=== PATIENT | female | born 1950 | race Two or more races ===

== ENCOUNTER → 2017-07-17 | Day surgery (SDC) | payer MEDICARE, OTHER ==
[2017-07-17 13:32] VITALS: RESP 16; BMI 34.0
--- NOTE | 2017-07-17 15:37 | MM ---
EXAMINATION TYPE: MG stereo VAD BX RT DATE OF EXAM: 07/17/2017 COMPARISON: Outside mammogram July 04, 2017 and June 19, 2017 CLINICAL HISTORY: Abnormal outside mammogram TECHNIQUE: Stereotactic guided core biopsy of right breast with clip placement and follow-up two-view mammogram. FINDINGS: The procedure of stereotactic guided core biopsy was explained to the patient. Benefits, alternatives, and risks were discussed. An informed consent was then obtained. [facility]. Shortness pathway was lateral approach. I performed the localization, then performed the remainder of the procedure. Overlying skin is cleansed with Betadine. Lidocaine is used as anesthetic into the skin and deeper tissue. A vacuum assisted biopsy gun was used to obtain multiple core samples. The patient tolerated the procedure well without any immediate complication. The patient was kept in the radiology department for short stay after the procedure and then discharged home in stable condition. Targeted calcifications are identified in specimen mammogram. Post biopsy mammogram shows the clip to appear in satisfactory position relative to the targeted area of concern on the preprocedure images. No suspicious residual calcifications are identified. IMPRESSION: SUCCESSFUL, UNCOMPLICATED STEREOTACTIC GUIDED CORE BIOPSY OF AREA OF CONCERN IN THE RIGHT BREAST, FULL PATHOLOGY RESULTS TO FOLLOW. Intermediate index of suspicion noted at time of procedure. Pathology Results: Benign BREAST, RIGHT, CORE BIOPSY: PENDING CONSULTATION, SEE ADDENDUM/FINAL DIAGNOSIS. ADDENDUM REPORT BREAST, RIGHT, STEREOTACTIC CORE BIOPSY ([id number]; 07/17/2017): FLAT EPITHELIAL ATYPIA (FEA) WITH ASSOCIATED MICROCALCIFICATIONS. Recommendation: Surgical consultation. Follow up mammogram of the right breast in 6 months. IVONNE
[2017-07-17 15:59] VITALS: BP 142/78; PULSE 67; TEMP 97.8
== END ==
LOC: RADMAMWWP 13:15
PROVIDERS: ATTEND Surgery
DX: R92.0 Mammographic microcalcification found on diagnostic imaging of breast (principal); Z88.6 Allergy status to analgesic agent; Z88.8 Allergy status to other drugs, medicaments and biological substances
CPT/HCPCS: 88305; 19081; A4648; J2001

== ENCOUNTER → 2018-08-06 | Outpatient (CLI) | payer MEDICARE, OTHER ==
--- NOTE | 2018-08-06 13:00 | MM ---
Reason for exam: additional evaluation requested from prior study. Last mammogram was performed 1 year and 1 month ago. History: Patient is postmenopausal. Benign MG pre op needle loc RT of the right breast, August 06, 2017. Benign MG stereo VAD BX RT of the right breast, July 17, 2017. Took estrogen for 3 years beginning at age 47. Took progesterone for 3 years beginning at age 47. Physical Findings: Nurse did not find any significant physical abnormalities on exam. MG 3D Diag Mammo W/Cad NICHELLE Bilateral CC and MLO view(s) were taken. LM, CC with magnification, MLO with magnification, and LM with magnification view(s) were taken of the left breast. Prior study comparison: July 04, 2017, mammogram. June 19, 2017, mammogram. The breast tissue is heterogeneously dense. This may lower the sensitivity of mammography. There is a 6 mm group left upper outer quadrant calcifications at middle depth appear rounded and punctate and loosely grouped. 6 month follow up is recommended. Post therapy change on right. These results were verbally communicated with the patient and result sheet given to the patient on 08/06/18. ASSESSMENT: Probably benign, BI-RAD 3 RECOMMENDATION: Follow-up diagnostic mammogram of the left breast in 6 months. (with magnification views)
== END | disposition home or self-care (01) ==
LOC: RADMAMWWP 09:58
PROVIDERS: ATTEND Family Medicine
DX: R92.8 Other abnormal and inconclusive findings on diagnostic imaging of breast (principal)
CPT/HCPCS: 77066; G0279; 77062

== ENCOUNTER → 2018-09-24 | Outpatient (CLI) | payer MEDICARE, OTHER ==
--- NOTE | 2018-09-24 20:31 | MR ---
EXAMINATION TYPE: MR lumbar spine wo con DATE OF EXAM: 09/24/2018 COMPARISON: None HISTORY: 68-year-old female with low back pain, primarily into right leg, and numbness TECHNIQUE: Multiplanar, multisequence images of the lumbar spine were acquired. FINDINGS: Vertebral body heights are preserved and alignment is maintained. Fatty matrix hemangioma within the L3 vertebral body. No suspicious bone marrow placement. There is hypertrophic facet arthropathy throughout the mid to lower lumbar spine. Prominent epidural fat lower lumbar spine and upper sacral canal causing trefoil configuration of the thecal sac at the S1 level. Mild multilevel degenerative disc disease with variable disc desiccation and disc bulging. Anterior e ndplate spondylosis is present throughout. Conus medullaris is normal. At T12-L1, no significant canal or foraminal stenosis. At L1-L2, mild bulging disc without significant canal or foraminal stenosis. At L2-L3, no canal or foraminal stenosis. At L3-L4, facet arthropathy without significant canal or foraminal stenosis. L4-L5, there is hypertrophic facet arthropathy with a prominent dorsal and lateral epidural fat and b ulging disc. Changes within mild right neuroforaminal stenosis and mild overall narrowing of the thec al sac without canal compromise. At L5-S1, there is moderate circumferential attenuation of the thecal sac secondary to epidural lipom atosis and bulging disc. There is hypertrophic facet arthropathy as well but no significant neurofora rosa stenosis seen. No prevertebral paravertebral soft tissue abnormality. IMPRESSION: 1. Hypertrophic facet arthropathy lower lumbar spine and mild multilevel degenerative disc disease. 2. Additional epidural lipomatosis lower lumbar spine and upper sacrum resulting in trefoil configura tion of the thecal sac at the S1 level and moderate circumferential attenuation of the thecal sac at L5-S1. 3. Changes result in mild right neuroforaminal stenosis at L4-L5.
== END | disposition home or self-care (01) ==
LOC: RADMRIMAIN 13:33
PROVIDERS: ATTEND Orthopaedic Surgery
DX: M99.73 Connective tissue and disc stenosis of intervertebral foramina of lumbar region (principal); M51.36 Other intervertebral disc degeneration, lumbar region; M46.96 Unspecified inflammatory spondylopathy, lumbar region; E88.2 Lipomatosis, not elsewhere classified
CPT/HCPCS: 72148

== ENCOUNTER → 2019-02-07 | Outpatient (CLI) | payer MEDICARE, OTHER ==
--- NOTE | 2019-02-07 12:26 | MM ---
Reason for exam: follow-up at short interval from prior study. Last mammogram was performed 6 months ago. History: Patient is postmenopausal. Benign MG pre op needle loc RT of the right breast, August 06, 2017. Benign MG stereo VAD BX RT of the right breast, July 17, 2017. Took estrogen for 3 years beginning at age 47. Took progesterone for 3 years beginning at age 47. Physical Findings: Nurse did not find any significant physical abnormalities on exam. MG 3D Diag Mammo W/Cad LT CC and MLO view(s) were taken of the left breast. Prior study comparison: August 06, 2018, bilateral MG 3d diag mammo w/cad NICHELLE. July 04, 2017, mammogram. Slight increase in calcifications upper outer left breast. Biopsy recommended. These results were verbally communicated with the patient and result sheet given to the patient on 02/07/19. ASSESSMENT: Suspicious, BI-RAD 4 RECOMMENDATION: Stereotactic core biopsy of the left breast. Called with mammographic findings and has scheduled an appointment for the patient for 02/20/19 at 12:[address] Talbot. Biopsy scheduled for 02/27/19 at 8:00. PRELIMINARY REPORT CALLED AND FAXED TO DR. TALBOT ON 02/07/19.
== END ==
LOC: RADMAMWWP 11:03
PROVIDERS: ATTEND Family Medicine
DX: R92.8 Other abnormal and inconclusive findings on diagnostic imaging of breast (principal)
CPT/HCPCS: 77065; G0279; 77061

== ENCOUNTER → 2019-02-20 | Outpatient (CLI) | payer MEDICARE, OTHER ==
[2019-02-20 12:19] VITALS: BP 150/86; PULSE 65; RESP 18; TEMP 97.6; BMI 37.7
--- NOTE | 2019-02-20 12:57 | P.GSHP ---
History of Present Illness H&P Date: 02/20/19 Chief Complaint: abnormal mammogram The patient is a 68 year old white female status post core biopsy of the right breast which resulted in an open biopsy about 11/2 years ago. The pathology was benign. She states she now has pain at the site where it was removed. The pain is intermittent and shooting in nature. She had a bilateral mammogram in July 2018 after which it was recommended that a repeat left breast mammogram be performed in 6 months. The left breast mammogram was performed on 5318. This revealed an increasing calcifications in the upper outer quadrant of the left breast and stereotactic core biopsy was recommended. She does not feel anything of concern in her breast. Family History: 1. sister: lymphoma 2. sister: lymphoma also 3. maternal grandmother: colon cancer Hormonal History: menarche: 15 : , first at 30. breast fed: yes menopause: 54 BCP: 20 years hormones: 1 year Past Surgical History: 1. breast biopsy right 2. enterocoele 3. gallbaldder Past Medical History: 1. back pain 2. tendonitis 3. GERD 4. obesity 5. syncope 6. arthritis 7. diabetic 8. skin lesion buttock Social History: smoke: none alcohol: weekly/beer drugs: Marijuana, daily for arthritis - Constitutional Constitutional: Reports sweats, Denies chills, Denies fever - EENT Eyes: denies blurred vision, denies pain Ears: bilateral: decreased hearing, deny: tinnitus Ears, nose, mouth and throat: Denies headache, Denies sore throat - Breasts Breasts: bilateral: as per HPI - Cardiovascular Cardiovascular: Reports high blood pressure, Denies chest pain, Denies shortness of breath - Respiratory Respiratory: Denies cough, Denies 7 - Gastrointestinal Gastrointestinal: Denies abdominal pain, Denies diarrhea, Denies nausea, Denies vomiting - Genitourinary (Female) Genitourinary: Denies dysuria, Denies hematuria - Menstruation Menstruation: Reports postmenopausal - Musculoskeletal Comment: arthritis, DJD - Integumentary Integumentary: Reports rash, Denies pruritus - Neurological Comment: syncope - Psychiatric Psychiatric: Reports anxiety, Reports depression - Endocrine Endocrine: Reports fatigue, Denies weight change - Hematologic/Lymphatic Comment: none - Allergic/Immunologic Allergic/Immunologic: Reports seasonal allergies Past Medical History Past Medical History: Diabetes Mellitus, GERD/Reflux, Hypertension, Osteoarthritis (OA), Skin Disorder Additional Past Medical History / Comment(s): HX NICHELLE. SHOULDER PAIN. URINE FREQUENCY-STRESS INCONT. HX DUODENAL ULCER- PT STATES R/T CELEBREX USE. NAUSEA History of Any Multi-Drug Resistant Organisms: None Reported Past Surgical History: Cholecystectomy, Tonsillectomy, Tubal Ligation Additional Past Surgical History / Comment(s): CATARACT NICHELLE EYES WITH IMPLANTS, LASIK NICHELLE.EYE SURGERY-2009. CYSTOCELE & RECTOCELE 2006 Past Anesthesia/Blood Transfusion Reactions: Previous Problems w/ Anesthesia Additional Past Anesthesia/Blood Transfusion Reaction / Comment(s): Pt states experienced extreme tiredness after anesthesia for several days after TL Past Psychological History: Anxiety Smoking Status: Former smoker Past Alcohol Use History: Occasional Additional Past Alcohol Use History / Comment(s): smoked 25 years 1ppd quit 1989 Past Drug Use History: Marijuana Additional Drug Use History / Comment(s): USES MARIJUANA 2-3 X A WEEK FOR HER NICHELLE.SHOULDER PAIN - Past Family History Mother Family Medical History: Cancer Additional Family Medical History / Comment(s): BONE CA Medications and Allergies Home Medications Medication Instructions Recorded Confirmed Type Escitalopram [Lexapro] 10 mg PO HS 07/15/14 02/20/19 History Lisinopril [Prinivil] 20 mg PO HS 07/15/14 02/20/19 History Omeprazole [PriLOSEC] 10 mg PO DAILY 07/13/17 02/20/19 History metFORMIN HCL ER [Glucophage Xr] 1,000 mg PO AC-LUNCH 07/13/17 02/20/19 History Simvastatin 10 mg PO DAILY 02/20/19 02/20/19 History Allergies Allergy/AdvReac Type Severity Reaction Status Date / Time celecoxib [From Celebrex] AdvReac Severe GI BLEED Verified 02/20/19 12:23 NSAIDS (Non-Steroidal AdvReac Abdominal Verified 02/20/19 12:23 Anti-Inflamma Pain Surgical - Exam Vital Signs Temp Pulse Resp BP Pulse Ox 97.6 F 65 18 150/86 97 02/20/19 12:07 02/20/19 12:07 02/20/19 12:07 02/20/19 12:07 02/20/19 12:07 BMI 37.7 - General obese - Eyes normal ocular movement - ENT normal pinna, no hearing loss - Neck no masses, trachea midline - Respiratory normal expansion, normal respiratory effort, clear to auscultation - Cardiovascular Rhythm: regular Heart Sounds: normal: S1, S2 - Abdomen Abdomen: soft, non tender, no guarding, no rigid, no rebound - Integumentary normal turgor - Neurologic no disoriented, no combative - Musculoskeletal normal gait, normal posture - Psychiatric oriented to time, oriented to person, oriented to place, speech is normal, memory intact breast exam: Right breast: Multi-positional exam no dominant masses or nodules of concern, well-healed scar from prior biopsy Right axilla: No adenopathy of concern Left breast: There is a skin nevus protuberant the medial aspect of the breast, this is non-worrisome, multiple positional exam no dominant masses or nodules of concern Left axilla: No adenopathy of concern Results Mammogram reports from July as well as February 2019 reviewed Assessment and Plan Assessment: Impression: 1. abnormal mammogram of the left breast 2. fibrocystic changes 3. family history of cancer, 4. skin lesion breast and buttock 5. back pain 6. GERD 7. syncope 8. obesity 9. HTN Plan: 1. stero biopsy of the left breast 2. medical managment of medical problems 3. excision of mole left breast Risk and benefits of procedure discussed with the patient, the patient to have a stero-biopsy in the near future. CC: Dr. Mcpherson
== END | disposition home or self-care (01) ==
LOC: WWCWWP 11:54
PROVIDERS: ATTEND Surgery
DX: Z53.9 Procedure and treatment not carried out, unspecified reason (principal)

== ENCOUNTER → 2019-03-27 | Day surgery (SDC) | payer MEDICARE, OTHER ==
[2019-03-27 07:43] VITALS: PULSE 62; RESP 16; BMI 37.7
[2019-03-27 08:54] VITALS: BP 140/88; TEMP 97.8
--- NOTE | 2019-03-27 09:34 | P.OP ---
Date of Procedure: 03/27/19 Preoperative Diagnosis: Abnormal mammogram left breast, microcalcifications Postoperative Diagnosis: same Procedure(s) Performed: Left breast stereotactic core biopsy Anesthesia: local Surgeon: Shell Talbot Estimated Blood Loss (ml): 0 Pathology: other (breast tissue) Condition: stable Disposition: same day Indications for Procedure: Microcalcifications of concern left breast Operative Findings: Calcifications noted and biopsy specimen Description of Procedure: Liza is a 68-year-old white female who presents for left breast stereotactic core biopsy of an area of increasing calcifications. The risks and benefits of the procedure were discussed with the patient and she wished to proceed with the procedure. The patient was placed on the lower right stereotactic table and a last puller film was obtained. The area of concern was identified. Stereo pair was obtained and the lesion was targeted. The breast was prepped using Betadine. A 9-gauge vacuum-assisted core rotating biopsy needle was inserted to the correct location. Prefire films were obtained, the needle was fired and posterior films were obtained. Prior to insertion of the needle 10 mL of 1% lidocaine were used to anesthetize the area of concern, as an additional 10 mL of lidocaine auto- injected during the procedure. Multiple core biopsies were obtained. Radiograph the specimen revealed the area of concern abdomen sampled as there were microcalcifications in the specimen. Following this a securing marked top Marker was placed. The patient tolerated the procedure in stable condition. The specimen was sent to pathology. Patient to follow-up with Dr. Mederos next week.
--- NOTE | 2019-03-27 17:46 | MM ---
EXAMINATION TYPE: MG stereo VAD BX LT DATE OF EXAM: 03/27/2019 COMPARISON: 02/07/2019 and 08/06/2018 CLINICAL HISTORY: 68-year-old female referred for stereotactic core needle biopsy of the left breast TECHNIQUE: Stereotactic guided core biopsy of the left breast. FINDINGS: The procedure of stereotactic guided core biopsy was explained to the patient. Benefits, alternatives, and risks were discussed. An informed consent was then obtained. The shortness pathway for biopsy was chosen for the upper outer quadrant microcalcifications. Shortness pathway was a superior approach. I performed the localization, then surgeon, Dr. Gatito Fairbanks performed the remainder of the procedure. A vacuum assisted biopsy gun was used to obtain multiple core samples. The patient tolerated the procedure well without any immediate complication. The patient was kept in the radiology department for short stay after the procedure and then discharged home in stable condition. Targeted calcifications are identified in specimen mammogram. Post biopsy mammogram shows the clip to appear in satisfactory position relative to the targeted area of microcalcifications in the upper outer quadrant. IMPRESSION: SUCCESSFUL, UNCOMPLICATED STEREOTACTIC GUIDED CORE BIOPSY OF LEFT UPPER OUTER QUADRANT MICROCALCIFICATIONS; FULL PATHOLOGY RESULTS TO FOLLOW. Pathology Results: Benign LEFT BREAST, STEREOTACTIC CORE BIOPSY: Fibrocystic changes including fibrosis, cysts, columnar cell change, apocrine metaplasia and calcifications. Recommendation Follow up mammogram of the left breast in 6 months. IVONNE
== END ==
LOC: RADMAMWWP 02-27 07:08
PROVIDERS: ATTEND Surgery
DX: N60.12 Diffuse cystic mastopathy of left breast (principal); N60.82 Other benign mammary dysplasias of left breast; R92.1 Mammographic calcification found on diagnostic imaging of breast; Z88.6 Allergy status to analgesic agent; Z88.8 Allergy status to other drugs, medicaments and biological substances
CPT/HCPCS: 88305; 19081; A4648; J2001

== ENCOUNTER → 2019-04-03 | Day surgery (SDC) | payer MEDICARE, OTHER ==
[2019-04-03 15:07] VITALS: BP 143/96; PULSE 72; RESP 16; TEMP 98.1; BMI 38.0
--- NOTE | 2019-04-03 15:37 | P.PN ---
Subjective Progress Note Date: 04/03/19 Principal diagnosis: sterobiopsy of the left breast The patient is status post left breast are detected core biopsy. Pathology is benign. The patient states she has not had a right breast mammogram for approximately 1-1/2 years. We will obtain a right breast mammogram at this time. He has no complaints related to the left breast stereotactic core biopsy. Physical exam: Lungs: Clear Heart: Regular rate and rhythm Left breast biopsy site clean and dry no evidence of infection Impression: 1. Fibrocystic changes left breast 2. Patient to a right breast mammogram CC:Dr. Mcpherson Objective - Vital Signs Vital signs: Vital Signs Temp 98.1 F 04/03/19 15:00 Pulse 72 04/03/19 15:00 Resp 16 04/03/19 15:00 BP 143/96 04/03/19 15:00 Pulse Ox 94 L 04/03/19 15:00 Intake & Output 04/02/19 04/03/19 04/03/19 18:59 06:59 18:59 Weight 97.522 kg
== END ==
LOC: EDSTATUS 03-28 14:20 → WWCWWP 14:43
PROVIDERS: ATTEND Surgery
DX: Z53.9 Procedure and treatment not carried out, unspecified reason (principal)

== ENCOUNTER → 2019-09-29 | Outpatient (CLI) | payer MEDICARE, OTHER ==
--- NOTE | 2019-09-29 10:51 | MM ---
Reason for exam: additional evaluation requested from prior study. Last mammogram was performed 8 months ago. History: Patient is postmenopausal. Benign MG stereo VAD BX LT of the left breast, March 27, 2019. Benign MG pre op needle loc RT of the right breast, August 06, 2017. Benign MG stereo VAD BX RT of the right breast, July 17, 2017. Took estrogen for 3 years beginning at age 47. Took progesterone for 3 years beginning at age 47. Physical Findings: Nurse did not find any significant physical abnormalities on exam. MG 3D Diag Mammo W/Cad NICHELLE Bilateral CC and MLO view(s) were taken. XCCL view(s) were taken of the right breast. Prior study comparison: February 07, 2019, left breast MG 3d diag mammo w/cad LT. August 06, 2018, bilateral MG 3d diag mammo w/cad NICHELLE. The breast tissue is heterogeneously dense. This may lower the sensitivity of mammography. Post excisional changes right breast. Upper outer quadrant microclip on the left from recent biopsy. No significant new findings when compared with previous films. These results were verbally communicated with the patient and result sheet given to the patient on 09/29/19. ASSESSMENT: Benign, BI-RAD 2 RECOMMENDATION: Routine screening mammogram of both breasts in 1 year.
== END | disposition home or self-care (01) ==
LOC: RADMAMWWP 09:14
PROVIDERS: ATTEND Surgery
DX: R92.8 Other abnormal and inconclusive findings on diagnostic imaging of breast (principal)
CPT/HCPCS: 77066; G0279; 77062

== ENCOUNTER → 2019-10-09 | Outpatient (CLI) | payer MEDICARE, OTHER ==
[2019-10-09 08:53] VITALS: BP 137/77; PULSE 69; RESP 18; TEMP 97.8
--- NOTE | 2019-10-09 09:44 | P.PN ---
Sabi De Jesus is a 69-year-old white female status post bilateral breast stereotactic biopsies. The right breast was approximately a year and half ago. In the left breast stereotactic biopsy was in March 2019. Pathology on both was benign. The patient at this time has no complaints related to her breasts. No complaints of pain in her breasts. No complaints of breast lumps or masses. No complaints of any nipple discharge or skin changes. Patient had bilateral mammogram in 122 [id number] and this was benign BIRADS 2 routine screening of both breasts in 1 year was recommended. Family History: 1. mother: lymphoma/leukemia 2. two sisters: lymphoma 3. maternal grandmother: colon cancer 4. nephew 1 year old : neuroblastoma Hormonal History: menarche: 15 : , first at 30. breast fed: yes menopause: 54 BCP: 20 years hormones: 1 year Past Surgical History: 1. breast biopsy bilateral stero biopsy 2. enterocoele 3. gallbaldder Past Medical History: 1. back pain 2. tendonitis 3. GERD 4. obesity 5. syncope 6. arthritis 7. diabetic 8. skin lesion buttock/rash Social History: smoke: none alcohol: weekly/beer drugs: Marijuana, daily for arthritis - Constitutional Constitutional: Reports sweats, Denies chills, Denies fever - EENT Eyes: denies blurred vision, denies pain, dry eyes Ears: bilateral: decreased hearing, deny: tinnitus Ears, nose, mouth and throat: Denies headache, Denies sore throat - Breasts Breasts: bilateral: as per HPI - Cardiovascular Cardiovascular: Reports high blood pressure, Denies chest pain, Denies shortness of breath - Respiratory Respiratory: cough related to smoking - Gastrointestinal Gastrointestinal: Denies abdominal pain, Denies diarrhea, Denies nausea, Denies vomiting - Genitourinary (Female) Genitourinary: Denies dysuria, Denies hematuria - Menstruation Menstruation: Reports postmenopausal - Musculoskeletal Comment: arthritis, DJD - Integumentary Integumentary: Reports rash, Denies pruritus - Neurological Comment: syncope - Psychiatric Psychiatric: Reports anxiety, Reports depression - Endocrine Endocrine: Reports fatigue, Denies weight change - Hematologic/Lymphatic Comment: none - Allergic/Immunologic Allergic/Immunologic: Reports seasonal allergies Past Medical History Past Medical History: Diabetes Mellitus, GERD/Reflux, Hypertension, Osteoarthritis (OA), Skin Disorder Additional Past Medical History / Comment(s): HX NICHELLE. SHOULDER PAIN. URINE FREQUENCY-STRESS INCONT. HX DUODENAL ULCER- PT STATES R/T CELEBREX USE. NAUSEA History of Any Multi-Drug Resistant Organisms: None Reported Past Surgical History: Cholecystectomy, Tonsillectomy, Tubal Ligation Additional Past Surgical History / Comment(s): CATARACT NICHELLE EYES WITH IMPLANTS, LASIK NICHELLE.EYE SURGERY-2009. CYSTOCELE & RECTOCELE 2005 Past Anesthesia/Blood Transfusion Reactions: Previous Problems w/ Anesthesia Additional Past Anesthesia/Blood Transfusion Reaction / Comment(s): Pt states experienced extreme tiredness after anesthesia for several days after TL Past Psychological History: Anxiety Smoking Status: Former smoker Past Alcohol Use History: Occasional Additional Past Alcohol Use History / Comment(s): smoked 25 years 1ppd quit 1989 Past Drug Use History: Marijuana Additional Drug Use History / Comment(s): USES MARIJUANA 2-3 X A WEEK FOR HER NICHELLE.SHOULDER PAIN - Past Family History Mother Family Medical History: Cancer Additional Family Medical History / Comment(s): BONE CA Medications and Allergies Home Medications Medication Instructions Recorded Confirmed Type Escitalopram [Lexapro] 10 mg PO HS 07/15/14 02/20/19 History Lisinopril [Prinivil] 20 mg PO HS 07/15/14 02/20/19 History Omeprazole [PriLOSEC] 10 mg PO DAILY 07/13/17 02/20/19 History metFORMIN HCL ER [Glucophage Xr] 1,000 mg PO AC-LUNCH 07/13/17 02/20/19 History Simvastatin lyrica 10 mg PO DAILY 02/20/19 02/20/19 History Allergies Allergy/AdvReac Type Severity Reaction Status Date / Time celecoxib [From Celebrex] AdvReac Severe GI BLEED Verified 02/20/19 12:23 NSAIDS (Non-Steroidal AdvReac Abdominal Verified 02/20/19 12:23 Anti-Inflamma Pain Objective - Vital Signs Vital signs: Vital Signs Temp 97.8 F 10/09/19 08:49 Pulse 69 10/09/19 08:49 Resp 18 10/09/19 08:49 BP 137/77 10/09/19 08:49 Pulse Ox 97 10/09/19 08:49 Intake & Output 10/08/19 10/09/19 10/09/19 18:59 06:59 18:59 Weight 98.43 kg - Exam BMI 38.4 - Constitutional General appearance: Present: obese - EENT Eyes: Present: EOMI ENT: Present: hearing grossly normal - Neck Details: no adenopathy of concern Neck: Present: normal ROM - Respiratory Respiratory: bilateral: CTA - Cardiovascular Rhythm: regular Heart sounds: normal: S1, S2 - Gastrointestinal Gastrointestinal Comment(s): spleen and liver not enlarged General gastrointestinal: Present: normal bowel sounds, soft - Integumentary Integumentary Comment(s): several scaling lesions on the bilateral lower arms related to prior trauma, dog scratches skin nevis left breast patient says no change - Musculoskeletal Musculoskeletal: Present: gait normal - Psychiatric Psychiatric: Present: A&O x's 3, appropriate affect, intact judgment & insight - Additional findings Additional findings: breast exam: right breast: Well-healed scar right breast, multiple positional exam no dominant masses or nodules of concern Right axilla: No adenopathy of concern Left breast: Multi-positional exam fibrocystic changes, no dominant masses or nodules of concern, scan reveals 2 small nevus which patient states has not changed Left axilla: No adenopathy of concern Assessment and Plan Assessment: Impression: 1. fibrocystic breast disease 2. status post bilateral stero-biopsy 3. bilateral mammogram on 09-29-19 benign BERAD 2 4. skin changes on left breast 5. family history of cancer 6. back pain 7. GERD 8. obeity 9. HTN 10. syncope Plan: 1. bilateral mammogram 1 year 2. patient does not want excision of mole of left breast at this time, this has been stable 3. medical managment of medical conditions 4. follow up in one year CC: DR. Luis encounter 20 minutes, > 50% discussion and counselling
== END ==
LOC: WWCWWP 08:37
PROVIDERS: ATTEND Surgery
DX: Z53.9 Procedure and treatment not carried out, unspecified reason (principal)

== ENCOUNTER → 2020-10-04 | Outpatient (CLI) | payer MEDICARE, OTHER ==
--- NOTE | 2020-10-04 13:21 | MM ---
Reason for exam: screening (asymptomatic). Last mammogram was performed 1 year ago. History: Patient is postmenopausal. Benign MG stereo VAD BX LT of the left breast, March 27, 2019. Benign MG pre op needle loc RT of the right breast, August 06, 2017. Benign MG stereo VAD BX RT of the right breast, July 17, 2017. Took estrogen for 3 years beginning at age 47. Took progesterone for 3 years beginning at age 47. Physical Findings: A clinical breast exam by your physician is recommended on an annual basis and results should be correlated with mammographic findings. MG 3D Screening Mammo W/Cad Bilateral CC and MLO view(s) were taken. Prior study comparison: September 29, 2019, bilateral MG 3d diag mammo w/cad NICHELLE. February 07, 2019, left breast MG 3d diag mammo w/cad LT. The breast tissue is heterogeneously dense. This may lower the sensitivity of mammography. Finding: There are clips, architectural distortion in the right breast consistent with known excisional changes. Previous mammotome biopsy in the left breast. There is no discrete abnormality. ASSESSMENT: Benign, BI-RAD 2 RECOMMENDATION: Routine screening mammogram of both breasts in 1 year.
== END | disposition home or self-care (01) ==
LOC: RADMAMWWP 07:53
PROVIDERS: ATTEND Surgery
DX: Z12.31 Encounter for screening mammogram for malignant neoplasm of breast (principal)
CPT/HCPCS: 77063; 77067

== ENCOUNTER → 2020-10-14 | Outpatient (CLI) | payer MEDICARE ==
[2020-10-14 09:54] VITALS: BP 155/84; PULSE 75; RESP 18; TEMP 97.7
--- NOTE | 2020-10-14 10:20 | P.PN ---
Subjective Progress Note Date: 10/14/20 Principal diagnosis: fibrocystic breast changes Liza is a 70-year-old white female status post bilateral breast stereotactic biopsies. The right breast was approximately 2 and half years ago. In the left breast stereotactic biopsy was in March 2019. Pathology on both was benign. The patient at this time has no complaints related to her breasts. No complaints of pain in her breasts. No complaints of breast lumps or masses. No complaints of any nipple discharge or skin changes. Patient had bilateral mammogram in and this was benign BIRADS 2 routine screening of both breasts in 1 year was recommended. Family History: 1. mother: lymphoma/leukemia 2. two sisters: lymphoma 3. maternal grandmother: colon cancer 4. nephew 1 year old : neuroblastoma Hormonal History: menarche: 15 : , first at 30. breast fed: yes menopause: 54 BCP: 20 years hormones: 1 year Past Surgical History: 1. breast biopsy bilateral stero biopsy 2. enterocoele 3. gallbaldder Past Medical History: 1. back pain; spinal stenosis 2. tendonitis 3. GERD 4. obesity 5. syncope 6. arthritis 7. diabetic 8. skin lesion buttock/rash Social History: smoke: none alcohol: weekly/beer drugs: Marijuana, daily for arthritis - Constitutional Constitutional: Reports sweats, Denies chills, Denies fever - EENT Eyes: denies blurred vision, denies pain, dry eyes Ears: bilateral: decreased hearing, deny: tinnitus Ears, nose, mouth and throat: Denies headache, Denies sore throat - Breasts Breasts: bilateral: as per HPI - Cardiovascular Cardiovascular: Reports high blood pressure, Denies chest pain, Denies shortness of breath - Respiratory Respiratory: cough related to smoking - Gastrointestinal Gastrointestinal: Denies abdominal pain, Denies diarrhea, Denies nausea, Denies vomiting - Genitourinary (Female) Genitourinary: Denies dysuria, Denies hematuria - Menstruation Menstruation: Reports postmenopausal - Musculoskeletal Comment: arthritis, DJD - Integumentary Integumentary: Reports rash, Denies pruritus - Neurological Comment: syncope - Psychiatric Psychiatric: Reports anxiety, Reports depression - Endocrine Endocrine: Reports fatigue, Denies weight change - Hematologic/Lymphatic Comment: none - Allergic/Immunologic Allergic/Immunologic: Reports seasonal allergies Objective - Vital Signs Vital signs: Vital Signs Temp 97.7 F 10/14/20 09:51 Pulse 75 10/14/20 09:51 Resp 18 10/14/20 09:51 BP 155/84 10/14/20 09:51 Pulse Ox 96 10/14/20 09:51 Intake & Output 10/13/20 10/14/20 10/14/20 18:59 06:59 18:59 Weight 98.883 kg - Exam BMI 37.7 - Constitutional General appearance: Present: obese - EENT Eyes: Present: EOMI ENT: Present: hearing grossly normal - Neck Neck: Present: normal ROM - Respiratory Respiratory: bilateral: CTA - Cardiovascular Rhythm: regular Heart sounds: normal: S1, S2 - Gastrointestinal General gastrointestinal: Present: normal bowel sounds, soft - Integumentary Integumentary: Present: normal turgor - Musculoskeletal Musculoskeletal: Present: gait normal - Psychiatric Psychiatric: Present: A&O x's 3, appropriate affect, intact judgment & insight - Additional findings Additional findings: breast exam: BRA: 40C inspection: bilateral grade 3 ptosis palpation: right breast: Positional exam fibrocystic changes, no dominant masses or nodules of concern Right axilla: No adenopathy of concern Left breast: Multi-positional exam fibrocystic changes, increased nodularity. Areolar area at 9 to 11:00 Left axilla: No adenopathy of concern Assessment and Plan Assessment: Impression: 1. back pain; spinal stenosis 2. tendonitis 3. GERD 4. obesity 5. syncope 6. arthritis 7. diabetic 8. skin lesion buttock/rash 9. Fibrocystic breast changes bilateral, increased nodularity 9 to 11 o'clock position left breast 10. Bilateral mammogram October 04 BIRADS 2 Plan: 1. FNA of increased nodularity 9 to 11 o'clock position left breast 2. Follow up if the FNA for results The risk and benefits of procedure discussed with the patient she understands and wishes to proceed CC: DR. Mcpherson encounter 20 minutes, > 50% of time in planning and counselling
--- NOTE | 2020-10-14 10:24 | P.PCN ---
Date of Procedure: 10/14/20 Preoperative Diagnosis: Nodularity left breast between 9 and 11:00 periareolar region Postoperative Diagnosis: same Procedure(s) Performed: FNA left breast Surgeon: Shell Talbot Pathology: other (FNA of left breast) Condition: stable Disposition: same day Indications for Procedure: nodularity left breast Description of Procedure: The area of concern in the left breast was prepped using alcohol. A 22 gauge needle on a 12 mL syringe was inserted into the area and a negative pressure tissue was obtained. The tissue was prepped and sent for FNA. Patient tolerated the procedure in stable condition. Specimen was sent for pathology.
== END | disposition home or self-care (01) ==
LOC: WWCWWP 09:33
PROVIDERS: ATTEND Surgery
DX: N64.9 Disorder of breast, unspecified (principal)
CPT/HCPCS: 88173; 88305

== ENCOUNTER → 2020-10-21 | Outpatient (CLI) | payer MEDICARE ==
[2020-10-21 09:37] VITALS: BP 137/90; PULSE 70; RESP 18; TEMP 98.1
--- NOTE | 2020-10-21 09:57 | P.PN ---
Progress Note - Text Progress Note Date: 10/21/20 There is a 70-year-old white female who is status post FNA of an area of the left breast at the 9 to 11 o'clock position for some increased nodularity. Recent radiographs did not show anything of concern. FNA was unsatisfactory revealing only blood and some amorphous debris. The patient was given the option of resection in the operating room versus an ultrasound and close surveillance of the area. At this time she would prefer the ultrasound and close surveillance. Physical exam: Examination of the left breast reveals some ecchymosis at the site of the FNA. No evidence of any infection. Impression: 1. Back pain, spinal stenosis 2. Tendinitis 3. GERD 4. Obesity 5. Syncope. 6. Arthritis 7. Diabetic 8. Skin lesion buttocks/rash 9. Fibrocystic breast changes bilateral increased nodularity 9 to 11 o'clock position FNA nondiagnostic 10. Bilateral mammogram in October 04/2025 minutes to Plan: 1. Patient was given the option of surgical resection of the area of concern in the left breast at this time she wishes to be followed conservatively the area does appear to be fibrocystic on palpation 2. Left breast ultrasound patient states that she is busy at this time and this will be done in the proximally 4 months with physician exam at that time CC:[facility] encounter 10 minutes, > 50% of time in planning and counselling
== END | disposition home or self-care (01) ==
LOC: WWCWWP 09:11
PROVIDERS: ATTEND Surgery
DX: Z53.9 Procedure and treatment not carried out, unspecified reason (principal)